=== PATIENT | male | born 1955 | race Caucasian/White ===

== ENCOUNTER 2019-08-21 11:48 | Inpatient (IN) ==
[2019-08-16 10:53] LABS: HEMATOCRIT 42.9 % (42.0-52.0); HEMOGLOBIN 14.2 g/dL (14.0-18.0); MCH 30.5 PG (27-31); MCHC 33.1 g/dL (33-37); MCV 92.1 FL (81-99); MPV 9.2 FL (7.4-10.4); RBC 4.66 XMIL (4.7-6.1); RDW 12.6 % (11.5-14.5); WBC 9.83 X1000 (4.8-10.8)
[2019-08-16 11:51] LABS: AGAP 18; BUN 12 mg/dL (8-22); CALCIUM 9.3 mg/dL (8.8-10.2); CHLORIDE 96 mmol/L (98-107); COSMO 286; CREATININE 0.9 mg/dL (0.7-1.2); ESTIMATED GFR > 60; GLUCOSE 217 mg/dL (70-104); POTASSIUM 4.5 mmol/L (3.5-5.1); SODIUM 140 mmol/L (136-145); TCO2 26 mmol/L (25-35)
[2019-08-21] MEDS ORDERED: KEFZOL 1 GM/D5W 2 GM/100 ML IVPB ONE (12:10)
[2019-08-21] MEDS ORDERED: LR 1,000 ML ONE ×2 (12:10→13:16)
[2019-08-21] MEDS ORDERED: PEPCID ONE (12:10)
[2019-08-21] MEDS ORDERED: REGLAN ONE (12:10)
[2019-08-21] MEDS ORDERED: NORCURON ONE (12:18)
[2019-08-21] MEDS ORDERED: SODIUM CHLORIDE 0.9% 10 ML ONE ×2 (12:18→13:40)
[2019-08-21] MEDS ORDERED: XYLOCAINE-MPF 2% ONE (12:18)
[2019-08-21] MEDS ORDERED: QUELICIN (DOSE) ONE (12:18)
[2019-08-21] MEDS ORDERED: DIPRIVAN 1% ONE (12:18)
[2019-08-21] MEDS ORDERED: XYLOCAINE 1%/EPI 1:100,000 ONE (13:15)
[2019-08-21] MEDS ORDERED: MARCAINE 0.25% PF ONE (13:16)
[2019-08-21] MEDS ORDERED: NEO-SYNEPHRINE ONE (13:40)
[2019-08-21] MEDS ORDERED: TORADOL ONE (13:54)
[2019-08-21] MEDS ORDERED: DECADRON ONE (13:54)
[2019-08-21] MEDS ORDERED: FENTANYL ONE (13:54)
[2019-08-21] MEDS ORDERED: ZOFRAN ONE (13:54)
[2019-08-21] MEDS ORDERED: ROBINUL ONE (14:44)
[2019-08-21] MEDS ORDERED: NEOSTIGMINE ONE (14:46)
[2019-08-21] MEDS ORDERED: OFIRMEV 1000 MG/ISOTONIC SOLN 1,000 MG/100 ML BOTTLE ONE (15:08)
[2019-08-21] MEDS: DILAUDID ONE ×4 (15:40→16:05)
[2019-08-21] MEDS ORDERED: NS 1,000 ML ONE (16:06)
[2019-08-21] MEDS: FLAGYL 500 MG/NS 500 MG/100 ML IVPB IV SCH ×2 (17:49→23:13)
[2019-08-21] MEDS: NS 1,000 ML IV SCH (17:49)
--- NOTE | 2019-08-21 19:55 | OPERATIVE NOTE ---
PROCEDURE DATE: 08/21/2019 PREOPERATIVE DIAGNOSIS: Abdominal mass. POSTOPERATIVE DIAGNOSIS: Abdominal mass. PROCEDURES PERFORMED: 1. Exploratory laparotomy with lysis of adhesions. 2. Small bowel resection. SURGEON: Wilberto Mcduffie MD STEAM TANK OPERATOR: Albert Grimes MD ANESTHESIA: General. ESTIMATED BLOOD LOSS: 100 mL. COMPLICATIONS: None apparent. SPECIMENS: Portion of small bowel with mesenteric mass. FINDINGS: There was a large baseball-sized cystic mass involving the mesentery of the distal small bowel and involving multiple loops of distal small bowel densely adherent to it. This required a resection of approximately 2 feet of small bowel. TECHNIQUE: The patient was brought to the operating room and placed supine on the table. General anesthesia was induced. A Diamond catheter was placed. He was prepped and draped in the usual sterile fashion, and 0.25% Marcaine with epinephrine was used to anesthetize our incisions. First, we started laparoscopically. An 11 mm incision was made above the umbilicus. The fascia was exposed and incised sharply. Entry into the peritoneal cavity was obtained under direct vision with the Optiview device. Pneumoperitoneum was established. The camera was inserted. There was no evidence of injury to underlying structures. He was placed in Trendelenburg. Two 5 mm incision ports were placed under direct vision, 1 in the left lower quadrant and 1 in the lower suprapubic midline. I easily found the cystic mass in the lower abdomen. The omentum and multiple loops of small bowel were densely adherent. It quickly became apparent that this small bowel was not going to be easily from this mass, and it involved multiple loops, and I felt like an open operation was safer at this point. I made a lower midline incision up around the umbilicus and carried this down through the fascia sharply and then through the fascia with cautery. Dr. Grimes joined me at this point and was present throughout the rest of the case and was helpful for exposure, retraction, and assisting with the anastomosis, as well as closure. I was able to mobilize some of the omentum away from the mass using the LigaSure device, and then using a combination of Metzenbaum scissors and cautery I incised adhesions bringing this mass and loops of small bowel up out of the pelvis and retroperitoneum. There were several loops of small bowel that were very densely adherent to the mass. I tried to separate them using Metzenbaum scissors, but it was just tethered, and it appeared to be arising out of the mesentery, and I was concerned about the blood supply to the bowel. It was apparent to me that a small bowel resection, along with the mass and the mesentery, was required. I was able to delineate the terminal ileum as it inserted into the cecum, and I had about 4 to 5 inches from the ileocecal valve up to the mass. I, therefore, transected the terminal ileum with a linear GUSTABO stapler just distal to the mass. I was able to find the most proximal loop of adherent bowel, and just before it became adherent to the mass I transected the bowel again in the same fashion. The intervening mesentery was divided with cautery and the LigaSure device. A couple of bleeding points in the mesentery were controlled with cautery and silk ties. The mass and the bowel were passed off the field. I then performed an end-to-end anastomosis, first placing a row of 3-0 silk seromuscular sutures posteriorly. I removed the staple lines with cautery and then began a posterior inner running locking 3-0 Vicryl converting to a [place] stitch anteriorly and then over sewed the anterior suture line with another row of 3-0 silk seromuscular Lembert type sutures. The anastomosis was felt to be patent and had good blood supply. It was under no tension. The mesenteric defect was closed with interrupted 3-0 silk. We removed all laparotomy pad. There were no signs of any bleeding. The bowel was returned to its anatomic position. I did feel around for the omentum, transverse colon, and liver and did not feel any other lesions. I closed the fascia and peritoneum with a running number 1 looped Maxon in 2 directions and the skin with skin clips. He tolerated this well. There were no apparent complications. He was transferred to the recovery room in stable condition. cc: Wilberto Mcduffie MD
[2019-08-21 20:18] LABS: URINE SOURCE CATH
[2019-08-21 20:21] LABS: BILIRUBIN URINE NEGATIVE (NEGATIVE); BLOOD URINE MODERATE (NEGATIVE); COLOR YELLOW; GLUCOSE URINE TRACE mg/dL (NEGATIVE); KETONE URINE TRACE mg/dL (NEGATIVE); LEUKOCYTES URINE NEGATIVE (NEGATIVE); NITRITE URINE NEGATIVE (NEGATIVE); PH URINE 5.5; PROTEIN URINE TRACE mg/dL (NEGATIVE); SP GRAVITY URINE 1.032; TURBIDITY URINE CLEAR (CLEAR); UROBILINOGEN URINE NORMAL (NORMAL)
[2019-08-21 20:23] LABS: UR EPITHELIAL CELLS <10 /HPF (<10); URINE BACTERIA NEGATIVE /HPF; URINE WBC <10 /HPF (<10)
[2019-08-21] MEDS: ZOFRAN IV PRN (21:21)
[2019-08-21] MEDS: LOVENOX SUBQ SCH (21:21)
[2019-08-21] MEDS: DILAUDID IV PRN (21:21)
[2019-08-21] MEDS: KEFZOL 2 GM/D5W 2 GM/50 ML IVPB IV SCH (21:21)
[2019-08-21] MEDS: PERIDEX MT SCH (23:13)
[2019-08-21] MEDS: PATIENT'S OWN MED PO SCH (23:14)
[2019-08-22] MEDS: ZOFRAN IV PRN ×6 (01:43→21:40)
[2019-08-22] MEDS: DILAUDID IV PRN ×6 (01:43→21:12)
[2019-08-22] MEDS: FLAGYL 500 MG/NS 500 MG/100 ML IVPB IV SCH ×2 (04:28→10:16)
[2019-08-22] MEDS: KEFZOL 2 GM/D5W 2 GM/50 ML IVPB IV SCH ×2 (04:28→13:14)
[2019-08-22] MEDS: NS 1,000 ML IV SCH (04:29)
[2019-08-22] MEDS: PRILOSEC PO SCH (06:14)
[2019-08-22 07:17] LABS: HEMATOCRIT 37.2 % (42.0-52.0); HEMOGLOBIN 12.5 g/dL (14.0-18.0); MCH 30.9 PG (27-31); MCHC 33.6 g/dL (33-37); MCV 92.1 FL (81-99); MPV 9.5 FL (7.4-10.4); RBC 4.04 XMIL (4.7-6.1); RDW 12.6 % (11.5-14.5); WBC 14.58 X1000 (4.8-10.8)
[2019-08-22 07:49] LABS: AGAP 8; BUN 19 mg/dL (8-22); CALCIUM 8.5 mg/dL (8.8-10.2); CHLORIDE 96 mmol/L (98-107); COSMO 280; CREATININE 0.9 mg/dL (0.7-1.2); ESTIMATED GFR > 60; GLUCOSE 177 mg/dL (70-104); POTASSIUM 4.6 mmol/L (3.5-5.1); SODIUM 137 mmol/L (136-145); TCO2 33 mmol/L (25-35)
[2019-08-22] MEDS: ASPIRIN PO SCH (10:14)
[2019-08-22] MEDS: PERIDEX MT SCH ×2 (10:14→20:37)
[2019-08-22] MEDS: D5 1/2 NS + KCL 20 MEQ 1,000 ML IV SCH ×2 (10:16→23:17)
[2019-08-22] MEDS: PATIENT'S OWN MED PO SCH ×2 (13:13→20:38)
--- NOTE | 2019-08-22 14:36 | GENERAL SURGERY PROGRESS NOTE ---
DATE: 08/22/2019 SUBJECTIVE: The patient is doing okay. He is sore and complains about the catheter in his bladder but otherwise is doing okay. No nausea or vomiting. No flatus. He has been out of bed to a chair already. OBJECTIVE: Vital Signs: Afebrile. Vital signs are stable. General: Awake, alert, and oriented x3. No acute distress. CV: Regular rate and rhythm. Respiratory: Clear bilateral breath sounds. No increased work of breathing. GI: Soft. Appropriately tender. Incisional dressing is clean and dry. Bowel sounds are absent. Laboratory: White blood cell count 14.5, hemoglobin 12, hematocrit 37. Electrolytes reviewed and unremarkable. ASSESSMENT AND PLAN: A 63-year-old male postoperative day 1 exploratory laparotomy with small- bowel resection and removal of mesenteric mass. We will go and remove the Diamond catheter today, consult physical therapy, and continue his ambulation. We will continue ice chips for now until better bowel function. cc: Wilberto Mcduffie MD
[2019-08-22] MEDS: LOVENOX SUBQ SCH (20:38)
[2019-08-23] MEDS: ZOFRAN IV PRN ×4 (01:40→14:05)
[2019-08-23] MEDS: DILAUDID IV PRN ×2 (01:40→05:46)
[2019-08-23] MEDS: PRILOSEC PO SCH (06:35)
[2019-08-23 07:26] LABS: BASO# 0.01 X1000 (0.0-0.2); BASO% 0.1 % (0.0-0.8); EOS# 0.02 X1000 (0.0-0.7); EOS% 0.2 % (0.0-10.0); HEMATOCRIT 39.5 % (42.0-52.0); LYMPH# 1.71 X1000 (1.2-3.4); LYMPH% 14.9 % (20.5-51.1); MCH 31.3 PG (27-31); MCHC 32.9 g/dL (33-37); MCV 95.2 FL (81-99); MONO# 0.96 X1000 (0.11-0.59); MONO% 8.3 % (1.7-9.3); MPV 9.9 FL (7.4-10.4); NEUT# 8.81 X1000 (1.4-6.5); NEUT% 76.5 % (42.2-75.2); PLT 195 X1000 (130-400); RBC 4.15 XMIL (4.7-6.1); RDW 12.8 % (11.5-14.5); WBC 11.51 X1000 (4.8-10.8)
[2019-08-23 08:05] LABS: AGAP 13; BUN 14 mg/dL (8-22); CALCIUM 8.2 mg/dL (8.8-10.2); CHLORIDE 97 mmol/L (98-107); COSMO 285; CREATININE 0.7 mg/dL (0.7-1.2); ESTIMATED GFR > 60; GLUCOSE 193 mg/dL (70-104); POTASSIUM 4.3 mmol/L (3.5-5.1); SODIUM 140 mmol/L (136-145); TCO2 30 mmol/L (25-35)
[2019-08-23] MEDS: ASPIRIN PO SCH (08:41)
[2019-08-23] MEDS: PERIDEX MT SCH ×2 (08:44→21:06)
[2019-08-23] MEDS: PATIENT'S OWN MED PO SCH ×2 (08:47→21:06)
--- NOTE | 2019-08-23 09:48 | Diag Imaging Result Doc PS360 ---
EXAM: FLAT/UPRIGHT ABD/1 VIEW CHEST 08/23/2019 HISTORY: post op distention/bloating TECHNIQUE: Flat and upright abdomen with AP chest, portable COMMENT: There are surgical skin clips from the epigastrium to the pelvis. There is some colonic gas. The small bowel is slightly distended on the right side of the abdomen. The stomach is not distended. There is no apparent organomegaly or mass. The chest is not well expanded. There are no focal opacities. IMPRESSION: Ileus versus partial small bowel obstruction. Electronically signed by Antoine Pink 08/23/2019 9:46 AM
[2019-08-23] MEDS: MORPHINE IV PRN ×2 (09:50→14:03)
[2019-08-23] MEDS: TORADOL IV SCH ×3 (09:54→21:06)
--- NOTE | 2019-08-23 12:25 | GENERAL SURGERY PROGRESS NOTE ---
DATE: 08/23/2019 SUBJECTIVE: The patient reports several episodes over the last 24 hours of intense abdominal pain with associated sweats. He then gets his IV Dilaudid, which helps with the pain, but makes him quite drowsy. He complains of bloating and a lot of belching. He has not passed flatus yet. He is able to get out of bed and void in the commode. OBJECTIVE: Vital Signs: He is afebrile. Vital signs are stable. Urine output 1800 mL. General: He is awake, alert, oriented x3. No acute distress. CV: Regular rate and rhythm. Respiratory: Clear bilateral breath sounds. GI: Soft, appropriately tender. He is obese. He does have active bowel sounds. Incisional dressing is clean and dry. LABORATORY DATA: White blood cell count 11, hemoglobin 13, hematocrit 39, platelet count 195,000. Metabolic profile reviewed and unremarkable. ASSESSMENT AND PLAN: A 63-year-old male, postoperative day 2, exploratory laparotomy with small- bowel resection and removal of mesenteric mass. He likely is having postoperative ileus. We will also change the Dilaudid to a lower dose of morphine, and add Toradol for a couple of days for pain control. We will keep him nothing by mouth, except ice chips for now until his bowel function improves. cc: Wilberto Mcduffie MD
[2019-08-23] MEDS: D5 1/2 NS + KCL 20 MEQ 1,000 ML IV SCH ×2 (14:12→21:07)
[2019-08-23] MEDS: LOVENOX SUBQ SCH (21:06)
[2019-08-24] MEDS: ZOFRAN IV PRN (01:38)
[2019-08-24] MEDS: MORPHINE IV PRN ×3 (01:38→16:32)
[2019-08-24] MEDS: D5 1/2 NS + KCL 20 MEQ 1,000 ML IV SCH ×2 (04:22→14:30)
[2019-08-24] MEDS: TORADOL IV SCH ×4 (04:22→22:08)
[2019-08-24] MEDS: PRILOSEC PO SCH (06:20)
[2019-08-24] MEDS: PATIENT'S OWN MED PO SCH ×2 (08:30→22:08)
[2019-08-24] MEDS: ASPIRIN PO SCH (08:32)
[2019-08-24] MEDS: PERIDEX MT SCH ×2 (08:32→22:08)
--- NOTE | 2019-08-24 17:37 | GENERAL SURGERY PROGRESS NOTE ---
DATE: 08/24/2019 SUBJECTIVE: He reports passing some flatus this morning. No nausea or vomiting. He has ambulated. Also, his pain is improving. OBJECTIVE: He is afebrile. Vital signs are stable.General: He is awake, alert, and oriented x3. No acute distress. Cardiovascular: Regular rate and rhythm. Respiratory: Bilateral breath sounds. No work of breathing. Gastrointestinal: Soft, obese, appropriately tender. Incisional dressings clean and dry. He does have bowel sounds. LABORATORY: None today. ASSESSMENT AND PLAN: A 63-year-old male postoperative day 3, small bowel resection along with mesenteric mass. He is improving. We will start him on a clear liquid diet. I have encouraged ongoing ambulation. We will keep his fluids going for now, as his urine looked a little dark. Dr. Rivas will make rounds over the weekend for me. cc: Wilberto Mcduffie MD
[2019-08-24] MEDS: LOVENOX SUBQ SCH (22:08)
[2019-08-25] MEDS: TORADOL IV SCH ×2 (02:24→09:48)
[2019-08-25] MEDS: D5 1/2 NS + KCL 20 MEQ 1,000 ML IV SCH ×2 (04:55→18:34)
[2019-08-25] MEDS: PRILOSEC PO SCH (06:44)
[2019-08-25] MEDS: PATIENT'S OWN MED PO SCH (09:48)
[2019-08-25] MEDS: ASPIRIN PO SCH (09:48)
[2019-08-25] MEDS: PERIDEX MT SCH (09:48)
[2019-08-25] MEDS: MORPHINE IV PRN (13:10)
--- NOTE | 2019-08-25 13:28 | PROGRESS NOTE ---
DATE: 08/25/2019 SUBJECTIVE: Mr. Go Liang is a 63-year-old overweight white male who is postop day 4 from an exploratory laparotomy with lysis of adhesions and a small bowel resection. Today, his abdomen is distended. He states that he has had flatus in and even a bowel movement. He remains on liquids and IV fluids. OBJECTIVE: His heart rate 76, blood pressure 140/76, O2 saturation 94%. He is afebrile. He has been good about moving around the room and bran. His wounds are dressed. PLAN: We will keep him on liquids and IV fluids. I have encouraged his continued activity. cc: MD Wilberto Quiroga MD
[2019-08-26] MEDS: PERIDEX MT SCH ×3 (00:08→21:32)
[2019-08-26] MEDS: LOVENOX SUBQ SCH ×2 (00:08→21:32)
[2019-08-26] MEDS: PATIENT'S OWN MED PO SCH ×3 (00:09→21:32)
[2019-08-26] MEDS: MORPHINE IV PRN ×3 (00:22→21:31)
[2019-08-26] MEDS: PRILOSEC PO SCH (06:20)
[2019-08-26] MEDS: D5 1/2 NS + KCL 20 MEQ 1,000 ML IV SCH ×2 (08:15→23:03)
[2019-08-26] MEDS: ASPIRIN PO SCH (09:08)
--- NOTE | 2019-08-26 10:12 | GENERAL SURGERY PROGRESS NOTE ---
DATE: 08/26/2019 SUBJECTIVE: Doing okay. He is having bowel function. No nausea, no vomiting. OBJECTIVE: Abdomen is soft. Incisions intact. LABORATORY DATA: Reviewed his labs. White count 11, hematocrit 39, creatinine 0.7. 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 We will advance the diet to soft today. Otherwise, we can continue him on low IV fluids, Lovenox. I have encouraged him to be out of bed and ambulate as much as possible. cc: MD Wilberto Ramos MD
[2019-08-27] MEDS: PRILOSEC PO SCH (07:49)
[2019-08-27] MEDS: ASPIRIN PO SCH (09:30)
[2019-08-27] MEDS: PERIDEX MT SCH ×2 (09:30→20:42)
[2019-08-27] MEDS: PATIENT'S OWN MED PO SCH ×2 (09:33→20:43)
[2019-08-27] MEDS: D5 1/2 NS + KCL 20 MEQ 1,000 ML IV SCH ×2 (13:03→13:04)
[2019-08-27] MEDS: MORPHINE IV PRN (15:43)
--- NOTE | 2019-08-27 19:13 | GENERAL SURGERY PROGRESS NOTE ---
DATE: 08/27/2019 SUBJECTIVE: Patient was seen Dr. Mcduffie this morning. He is having bowel function. He is tolerating a diet. He is moving about the room. OBJECTIVE: No fever, pulse 69, blood pressure 187/90, oxygen saturation 97%.General: He is alert. Abdomen is soft. Incision is intact. DIAGNOSTIC STUDIES: No new labs this morning. ASSESSMENT AND PLAN: A 63-year-old gentleman who is status post resection of pelvic mass with bowel resection. He is overall doing okay. Anticipate home within next 24 to 48 hours. Otherwise, I have encouraged to be out of bed. cc: MD Wilberto Ramos MD
[2019-08-27] MEDS: LOVENOX SUBQ SCH (20:43)
[2019-08-28] MEDS: D5 1/2 NS + KCL 20 MEQ 1,000 ML IV SCH ×2 (02:02)
[2019-08-28] MEDS: PRILOSEC PO SCH (06:21)
[2019-08-28] MEDS: PATIENT'S OWN MED PO SCH (08:11)
[2019-08-28] MEDS: PERIDEX MT SCH (08:11)
[2019-08-28] MEDS: ASPIRIN PO SCH (08:11)
[2019-08-28 11:29] VITALS: BP 156/84
--- NOTE | 2019-08-28 14:38 | GENERAL SURGERY PROGRESS NOTE ---
DATE: 08/28/2019 SUBJECTIVE: The patient is doing well overall. He has some abdominal soreness but it is manageable. He is eating some food, and having flatus and liquid bowel movements. He is ambulating daily. OBJECTIVE: He is afebrile. Vital signs are stable. General: He is awake, alert, and oriented x3. No acute distress. GI: Soft. Mildly tender. Incision is clean, dry, and intact. Pathology: Pathology report pending. Laboratory: None today. ASSESSMENT/PLAN: A 63-year-old male who is status post open small bowel resection for mesenteric mass. He is stable and ready for discharge. I went over instructions with him. He will follow up with me next week. cc: Wilberto Mcduffie MD
--- NOTE | 2019-09-05 19:32 | DISCHARGE SUMMARY ---
ADMISSION DATE: 08/21/2019 DISCHARGE DATE: 08/28/2019 ADMITTING PHYSICIAN: Wilberto espitia. ADMITTING DIAGNOSIS: Right lower quadrant abdominal mass. DISCHARGE DIAGNOSES: 1. Right lower quadrant abdominal mass. 2. Fat necrosis. 3. Calcifications. 4. Foreign body giant cell reaction. 5. Probable surgical gauze. PROCEDURES: Exploratory laparotomy with resection of small bowel and mesenteric cystic mass. HOSPITAL COURSE: This patient was evaluated in the outpatient setting for symptoms of pain in the right lower quadrant. He had imaging showing a cystic mass of unclear etiology. He was brought to the operating room for exploration. For full details of the operation, please see the dictated report. Postoperatively, he did well. He was initially kept NPO, but when he started passing flatus, he was started on a liquid diet and this was slowly advanced. He did have a bowel movement on 08/25/2019. He was slowly mobilized as his pain was controlled better. He did have a mild postoperative ileus as expected. By 08/21/2019, he was eating, passing gas and having liquid bowel movements. He was ambulating. His vital signs were stable. His abdomen was appropriate. His postoperative labs were stable. His pathology report was not available at the time of discharge, but later was reviewed and revealed a foreign body reaction secondary to gauze like material which is probably from his only other operation which was an open appendectomy when he was 13 years old. INSTRUCTIONS: Follow up with Dr. Mcduffie in 1 week. No lifting over 10 to 15 pounds. He may shower. He may eat a soft diet as tolerated. DISCHARGE MEDICATIONS: He will resume his home Pravachol, losartan/hydrochlorothiazide, aspirin, omeprazole, Apremilast. New prescription: [place] 10 mg 1 p.o. q.8 hours p.r.n. pain. cc: Wilberto Mcduffie MD
== END 2019-08-28 15:40 | disposition home or self-care (01) | DRG 908 ==
LOC: PAT 11:48 → 4N 11:48 → OBSVTOIN 14:52
PROVIDERS: ADMIT Surgery; ATTEND Surgery